=== PATIENT | female | born 1975 | race Caucasian/White ===

== ENCOUNTER 2016-09-01 19:54 | Emergency (ER) | payer MEDICAID ==
[2016-09-01 19:54] VITALS: BMI 28.3
[2016-09-01 20:10] VITALS: O2SAT 99
[2016-09-01] MEDS ORDERED: Sodium Chloride 0.9% 1,000 ML IV ONE (20:30)
[2016-09-01] MEDS ORDERED: Sodium Chloride 0.9% 1,000 ML ONE (20:30)
[2016-09-01 20:37] LABS: BASO # 0.1 K/uL (0.0-0.2); BASO % 1.1 % (0.0-2.0); EOS # 0.7 K/uL (0.0-0.7); EOS % 7.2 % (0.0-4.0); HEMOGLOBIN 11.1 g/dL (11.0-16.0); LYMPH # 3.6 K/uL (1.0-4.3); MEAN CELL VOLUME 76.4 fL (81.0-99.0); MEAN CORPUSCULAR HEMOGLOBIN 24.5 pg (27.0-31.0); MEAN CORPUSCULAR HGB CONC 32.1 g/dL (33.0-37.0); MEAN PLATELET VOLUME 9.5 fL (7.2-11.7); MONO # 0.6 K/uL (0.0-0.8); MONO % 6.5 % (0.0-10.0); NEUT # 4.7 K/uL (1.8-7.0); NEUT % 48.2 % (50.0-75.0); RBC 4.51 Mil/uL (3.80-5.20); RED CELL DISTRIBUTION WIDTH 16.6 % (11.5-14.5); WHITE BLOOD COUNT 9.7 K/uL (4.8-10.8)
[2016-09-01 20:45] LABS: ALBUMIN 4.3 g/dL (3.5-5.0)
[2016-09-01 20:48] LABS: ALB/GLOB RATIO 1.3 (1.0-2.1); ALT/SGPT 30 U/L (9-52); AST/SGOT 24 U/L (14-36); BLOOD UREA NITROGEN 6 mg/dL (7-17); GFR AFRICAN-AMERICAN > 60; GFR NON-AFRICAN AMERICAN > 60; LIPASE 94 U/L (23-300)
--- NOTE | 2016-09-01 21:17 | C.PDOC ---
Time Seen by Provider: 09/01/16 20:17 Chief Complaint (Nursing): Abdominal Pain History Per: Patient, Family Onset/Duration Of Symptoms: Days (about 3 weeks) Current Symptoms Are (Timing): Still Present Severity: Moderate Location Of Pain/Discomfort: Epigastric Quality Of Discomfort: Unable To Describe, "Pain" Associated Symptoms: Nausea, Vomiting, Diarrhea Exacerbating Factors: Food Alleviating Factors: None Additional History Per: Prior Records Last Menstral Period: Now Past Medical History Reviewed: Historical Data, Nursing Documentation, Vital Signs Vital Signs: Last Vital Signs Temp 98.1 F 09/01/16 20:06 Pulse 70 09/01/16 20:06 Resp 20 09/01/16 20:06 BP 101/67 09/01/16 20:06 Pulse Ox 99 09/01/16 21:17 - Medical History PMH: Gastritis, HTN, Hypercholesterolemia, Hypothyroidism Surgical History: Appendectomy Family History: States: Unknown Family Hx - Social History Hx Tobacco Use: No Hx Alcohol Use: No Hx Substance Use: No - Immunization History Hx Tetanus Toxoid Vaccination: Yes Hx Influenza Vaccination: No Hx Pneumococcal Vaccination: No Review Of Systems Except As Marked, All Systems Reviewed And Found Negative. Constitutional: Negative for: Fever, Weakness Cardiovascular: Negative for: Chest Pain Respiratory: Negative for: Shortness of Breath Gastrointestinal: Positive for: Nausea, Vomiting, Abdominal Pain, Diarrhea. Negative for: Melena, Hematochezia, Hematemesis Genitourinary: Negative for: Dysuria Musculoskeletal: Positive for: Back Pain. Negative for: Neck Pain Skin: Negative for: Rash Neurological: Negative for: Weakness, Numbness, Seizures, Altered Mental Status Physical Exam - Physical Exam Appears: Non-toxic, No Acute Distress Skin: Normal Color, Warm, Dry, No Rash Head: Atraumatic, Normacephalic Eye(s): bilateral: Normal Inspection, PERRL, EOMI Neck: Normal ROM, Supple Cardiovascular: Rhythm Regular Respiratory: Normal Breath Sounds, No Accessory Muscle Use Gastrointestinal/Abdominal: Soft, Tenderness (epigastric) Extremity: Normal ROM Neurological/Psych: Oriented x3, Normal Motor, Normal Sensation ED Course And Treatment - Laboratory Results Result Diagrams: 09/01/16 20:34 09/01/16 20:34 Lab Interpretation: No Acute Changes Urine POC: Negative O2 Sat by Pulse Oximetry: 99 Pulse Ox Interpretation: Normal Progress - Interventions Interventions:: Observation, Intravenous fluid - Medications Administered Oral: Acetaminophen Intravenous: Antiemetic, H-2 josh - Data Reviewed Data Reviewed: Lab, Old records - Patient Status Patient status: Mostly improved - Continuity of Care Discussed patient case with:: Patient, Family-HIPPA compliant, ED Nurse - Patient Plan Patient Plan: Discharge, F/U with PCP, Continue present meds Disposition Counseled Patient/Family Regarding: Studies Performed, Diagnosis, Need For Followup, Rx Given - Disposition Disposition: HOME/ ROUTINE Disposition Time: 23:18 Condition: IMPROVED Additional Instructions: Follow up with your primary doctor and a Sales Performance Analyst for further evaluation and treatment. Return to the ER if you develop fever, vomiting, bloody or black stools, worsening of symptoms or if you have any other concerns. Prescriptions: Metoclopramide [Reglan] 1 tab PO TID PRN #15 tab PRN Reason: Nausea/Vomiting Sucralfate [Carafate] 1 gm PO QID #30 tab Instructions: Gastritis (ED) Print Language: HUNGARIAN - Clinical Impression Clinical Impression: Epigastric abdominal pain
[2016-09-01 21:27] LABS: HCG,QUALITATIVE URINE NEGATIVE (NEGATIVE); SQUAMOUS EPITHIAL < 1 /hpf (0-5); URINE BILIRUBIN NEGATIVE (NEGATIVE); URINE BLOOD NEGATIVE (NEGATIVE); URINE CLARITY Clear (Clear); URINE COLOR Yellow (YELLOW); URINE GLUCOSE (UA) NORMAL (Normal); URINE LEUKOCYTE ESTERASE NEG Leu/uL (Negative); URINE NITRATE NEGATIVE (NEGATIVE); URINE PROTEIN NEGATIVE (NEGATIVE); URINE UROBILINOGEN NORMAL mg/dL (0.2-1.0)
[2016-09-01 23:32] VITALS: BP 100/62; PULSE 64; RESP 18; TEMP 97.4
== END 2016-09-01 23:31 | disposition home or self-care (01) ==
LOC: C.ER 19:54
DX: R10.13 Epigastric pain (principal)
CPT/HCPCS: 80053; 81001; 83690; 84703; 85025; 96361; 96374; 96375; 99284; J2765; J7040